=== PATIENT | male | born 1985 | race Two or more races ===

== ENCOUNTER 2020-12-12 09:41 | Inpatient (IN) | payer BC, OTHER ==
[~2020-12-12] VITALS: Ht 172.7 cm; Wt 86.4 kg
[2020-12-12] MEDS ORDERED: MORPHINE SULFATE 4 MG/ML, 1ML ONE ×2 (10:25→13:24)
[2020-12-12] MEDS ORDERED: ONDANSETRON 2MG/ML, 2ML ONE (10:25)
[2020-12-12] MEDS ORDERED: SODIUM CHLORIDE FLUSH 10ML SYR IVF ONE (10:30)
[2020-12-12] MEDS ORDERED: SODIUM CHLORIDE 0.9% 1,000ML IVBOLUS ONE (10:30)
[2020-12-12] MEDS ORDERED: ONDANSETRON 2MG/ML, 2ML IVPush ONE (10:30)
[2020-12-12] MEDS: MORPHINE SULFATE 4 MG/ML, 1ML IVPush PRN ×2 (10:52→13:33)
[2020-12-12 11:17] LABS: BASOPHILS % (AUTO) 1 % (0-1); EOSINOPHILS % (AUTO) 0 % (1-7); LYMPHOCYTES % (AUTO) 13 % (22-44); MEAN CORPUSCULAR HEMOGLOBIN 31.3 pg (27.5-34.5); MEAN CORPUSCULAR HGB CONC 34.8 g/dL (33.2-36.2); MEAN PLATELET VOLUME 7.7 fL (7.4-10.4); MONOCYTES % (AUTO) 9 % (2-9); NEUTROPHILS % (AUTO) 78 % (42-75); PLATELET COUNT 312 x10^3/uL (130-400); RED BLOOD COUNT 5.22 x10^6/uL (4.38-5.82); RED CELL DISTRIBUTION WIDTH 13.3 % (9.4-14.8)
[2020-12-12 11:22] LABS: ALANINE AMINOTRANSFERASE 45 U/L (12-78); ALBUMIN 4.2 g/dL (3.4-5.0); ANION GAP 5 mmol/L (5-15); CALCIUM 9.2 mg/dL (8.5-10.1); CHLORIDE 104 mmol/L (98-107)
[2020-12-12 11:25] LABS: ALKALINE PHOSPHATASE 79 U/L (45-117); BILIRUBIN,TOTAL 2.6 mg/dL (0.2-1.0); CREATININE 0.96 mg/dL (0.7-1.3); TOTAL PROTEIN 8.5 g/dL (6.4-8.2)
[2020-12-12] MEDS ORDERED: OMNIPAQUE 350 MG/ML, 100ML BOTTLE ONE (11:45)
[2020-12-12 11:58] LABS: MD SCAN
--- NOTE | 2020-12-12 12:49 | NUR ---
REPORT FROM MAREN, ASSUME CARE OF PT AT THIS TIME.
--- NOTE | 2020-12-12 13:04 | NUR ---
URINE COLLECTED/SENT TO LAB.
[2020-12-12 13:13] LABS: MICROSCOPIC NOT IND
[2020-12-12] MEDS ORDERED: METRONIDAZOLE PMX 500MG/100ML 100 ML ONE (13:23)
[2020-12-12] MEDS ORDERED: METRONIDAZOLE PMX 500MG/100ML 100 ML IV ONE (13:30)
[2020-12-12] MEDS ORDERED: CEFTRIAXONE 1,000 MG in DEXTROSE 5% 50 ML IVPB ONE (13:30)
--- NOTE | 2020-12-12 13:38 | NUR ---
[facility] IN TO SEE PT. PT MEDICATED FOR 6/10 ABD PAIN AND ANTIBIOTIC INFUSING PER ERP ORDER. PER [facility], OKAY TO PROVIDE ICE CHIPS AND NO HEART MONITORING NEEDED AT THIS TIME. VS UPDATED IN COMPUTER.
[2020-12-12] MEDS ORDERED: HYDROcodone/APAP 5/325 TABLET PO PRN (14:00)
[2020-12-12] MEDS ORDERED: PHARMACY MAY ADJ FOR RENAL FX MC SCH (14:00)
[2020-12-12] MEDS ORDERED: ONDANSETRON ODT 4 MG PO PRN (14:00)
--- NOTE | 2020-12-12 14:09 | NUR ---
REPORT TO DRE RN, PT READY FOR TRANSPORT.
[2020-12-12 14:14] LABS: BASOPHILS % (AUTO) 1 % (0-1); EOSINOPHILS % (AUTO) 0 % (1-7); LYMPHOCYTES % (AUTO) 16 % (22-44); MEAN CORPUSCULAR HEMOGLOBIN 30.2 pg (27.5-34.5); MEAN CORPUSCULAR HGB CONC 33.9 g/dL (33.2-36.2); MEAN PLATELET VOLUME 7.5 fL (7.4-10.4); MONOCYTES % (AUTO) 8 % (2-9); NEUTROPHILS % (AUTO) 75 % (42-75); PLATELET COUNT 290 x10^3/uL (130-400); RED BLOOD COUNT 5.17 x10^6/uL (4.38-5.82); RED CELL DISTRIBUTION WIDTH 13.5 % (9.4-14.8)
[2020-12-12 14:22] LABS: MD NO
[2020-12-12 14:24] LABS: ALANINE AMINOTRANSFERASE 43 U/L (12-78); ALBUMIN 3.7 g/dL (3.4-5.0); CALCIUM 8.3 mg/dL (8.5-10.1); CHLORIDE 107 mmol/L (98-107); CREATININE 0.76 mg/dL (0.7-1.3)
[2020-12-12 14:26] LABS: ALKALINE PHOSPHATASE 79 U/L (45-117); BILIRUBIN,TOTAL 2.2 mg/dL (0.2-1.0); TOTAL PROTEIN 7.8 g/dL (6.4-8.2)
[2020-12-12 14:29] VITALS: BP 138/90
[2020-12-12 14:32] LABS: ANION GAP 7 mmol/L (5-15)
[2020-12-12] MEDS: ENOXAPARIN 40 MG/0.4 ML SQ SCH (14:46)
[2020-12-12] MEDS: SODIUM CHLORIDE 0.9% 1,000 ML IV SCH ×2 (14:47→23:48)
[2020-12-12] MEDS: morphine SULFATE 10 MG/ML, 1ML IV PRN ×2 (17:59→21:12)
[2020-12-12 19:01] VITALS: BP 125/79
[2020-12-12] MEDS: METRONIDAZOLE PMX 500MG/100ML 100 ML IV SCH (20:53)
[2020-12-13 00:29] VITALS: BP 118/76
[2020-12-13] MEDS: morphine SULFATE 10 MG/ML, 1ML IV PRN ×4 (01:27→19:40)
[2020-12-13] MEDS: METRONIDAZOLE PMX 500MG/100ML 100 ML IV SCH ×3 (04:53→20:47)
[2020-12-13 06:55] VITALS: BP 145/91
[2020-12-13 07:05] LABS: BASOPHILS % (AUTO) 0 % (0-1); EOSINOPHILS % (AUTO) 0 % (1-7); LYMPHOCYTES % (AUTO) 13 % (22-44); MEAN CORPUSCULAR HEMOGLOBIN 30.8 pg (27.5-34.5); MEAN CORPUSCULAR HGB CONC 34.1 g/dL (33.2-36.2); MEAN PLATELET VOLUME 7.8 fL (7.4-10.4); MONOCYTES % (AUTO) 8 % (2-9); NEUTROPHILS % (AUTO) 79 % (42-75); PLATELET COUNT 269 x10^3/uL (130-400); RED CELL DISTRIBUTION WIDTH 13.4 % (9.4-14.8)
[2020-12-13 07:08] LABS: ALANINE AMINOTRANSFERASE 69 U/L (12-78); ALBUMIN 3.4 g/dL (3.4-5.0); ANION GAP 7 mmol/L (5-15); CALCIUM 8.4 mg/dL (8.5-10.1); CHLORIDE 106 mmol/L (98-107); CREATININE 0.77 mg/dL (0.7-1.3)
[2020-12-13 07:10] LABS: MD NO
[2020-12-13 07:11] LABS: ALKALINE PHOSPHATASE 78 U/L (45-117); BILIRUBIN,TOTAL 3.1 mg/dL (0.2-1.0); TOTAL PROTEIN 7.4 g/dL (6.4-8.2)
[2020-12-13] MEDS: SODIUM CHLORIDE 0.9% 1,000 ML IV SCH ×3 (07:33→23:49)
[2020-12-13] MEDS: ACETAMINOPHEN 325 MG TABLET PO PRN (07:43)
[2020-12-13] MEDS: ENOXAPARIN 40 MG/0.4 ML SQ SCH (13:11)
[2020-12-13 13:13] VITALS: BP 155/90
[2020-12-13] MEDS: CEFTRIAXONE 2 GM in DEXTROSE 5% 50 ML IVPB SCH (14:15)
[2020-12-13 19:48] VITALS: BP 156/91
[2020-12-14 00:55] VITALS: BP 142/98
[2020-12-14] MEDS: morphine SULFATE 10 MG/ML, 1ML IV PRN ×3 (01:01→14:48)
[2020-12-14] MEDS: ACETAMINOPHEN 325 MG TABLET PO PRN (04:47)
[2020-12-14] MEDS: METRONIDAZOLE PMX 500MG/100ML 100 ML IV SCH ×3 (04:48→20:48)
[2020-12-14 05:43] LABS: BASOPHILS % (AUTO) 1 % (0-1); EOSINOPHILS % (AUTO) 1 % (1-7); LYMPHOCYTES % (AUTO) 22 % (22-44); MEAN CORPUSCULAR HEMOGLOBIN 30.6 pg (27.5-34.5); MEAN CORPUSCULAR HGB CONC 33.9 g/dL (33.2-36.2); MEAN PLATELET VOLUME 7.4 fL (7.4-10.4); MONOCYTES % (AUTO) 9 % (2-9); NEUTROPHILS % (AUTO) 67 % (42-75); PLATELET COUNT 311 x10^3/uL (130-400); RED BLOOD COUNT 4.92 x10^6/uL (4.38-5.82); RED CELL DISTRIBUTION WIDTH 13.2 % (9.4-14.8)
[2020-12-14 05:46] LABS: MD NO
[2020-12-14 05:52] LABS: ALBUMIN 3.5 g/dL (3.4-5.0); ANION GAP 7 mmol/L (5-15); CHLORIDE 104 mmol/L (98-107)
[2020-12-14 05:55] LABS: ALANINE AMINOTRANSFERASE 57 U/L (12-78); ALKALINE PHOSPHATASE 76 U/L (45-117); BILIRUBIN,TOTAL 1.6 mg/dL (0.2-1.0); CALCIUM 9.4 mg/dL (8.5-10.1); CREATININE 0.71 mg/dL (0.7-1.3); TOTAL PROTEIN 7.8 g/dL (6.4-8.2)
[2020-12-14 07:43] VITALS: BP 147/107
[2020-12-14] MEDS: SODIUM CHLORIDE 0.9% 1,000 ML IV SCH (08:49)
[2020-12-14 13:28] LABS: OCCULT BLOOD NEGATIVE (NEGATIVE)
[2020-12-14 13:30] VITALS: BP 153/103
[2020-12-14 13:38] LABS: STOOL FOR LEUKOCYTES NONE SEEN (NEGATIVE)
[2020-12-14] MEDS: ENOXAPARIN 40 MG/0.4 ML SQ SCH (14:00)
[2020-12-14] MEDS: CEFTRIAXONE 2 GM in DEXTROSE 5% 50 ML IVPB SCH (14:48)
[2020-12-14 18:52] VITALS: BP 146/100
[2020-12-14 19:09] VITALS: BP 137/88
[2020-12-15] MEDS: ACETAMINOPHEN 325 MG TABLET PO PRN (00:25)
[2020-12-15 01:17] VITALS: BP 135/89
[2020-12-15 05:09] LABS: BASOPHILS % (AUTO) 1 % (0-1); EOSINOPHILS % (AUTO) 2 % (1-7); LYMPHOCYTES % (AUTO) 21 % (22-44); MEAN CORPUSCULAR HEMOGLOBIN 30.8 pg (27.5-34.5); MEAN CORPUSCULAR HGB CONC 34.5 g/dL (33.2-36.2); MEAN PLATELET VOLUME 7.5 fL (7.4-10.4); MONOCYTES % (AUTO) 10 % (2-9); NEUTROPHILS % (AUTO) 67 % (42-75); PLATELET COUNT 382 x10^3/uL (130-400); RED BLOOD COUNT 5.31 x10^6/uL (4.38-5.82)
[2020-12-15 05:10] LABS: MD NO
[2020-12-15] MEDS: METRONIDAZOLE PMX 500MG/100ML 100 ML IV SCH ×2 (05:11→12:39)
[2020-12-15 05:24] LABS: ANION GAP 5 mmol/L (5-15); CALCIUM 9.5 mg/dL (8.5-10.1); CHLORIDE 105 mmol/L (98-107); CREATININE 0.86 mg/dL (0.7-1.3)
[2020-12-15 07:34] VITALS: BP 143/98
[2020-12-15 12:46] VITALS: BP 148/96
[2020-12-15] MEDS: ENOXAPARIN 40 MG/0.4 ML SQ SCH (14:00)
[2020-12-15] MEDS: CEFTRIAXONE 2 GM in DEXTROSE 5% 50 ML IVPB SCH (14:27)
[2020-12-15] MEDS ORDERED: CEFD300C37 PO (15:03)
[2020-12-15] MEDS ORDERED: ACID1TAB7 PO (15:03)
[2020-12-15] MEDS ORDERED: METR500T PO (15:03)
[2020-12-15] MEDS ORDERED: HYDR-2214 PO (15:03)
[2020-12-15] MEDS ORDERED: LACTOBACILLUS CHEW TABLET PO SCH (16:00)
[2020-12-15] MEDS ORDERED: metroNIDAZOLE 500 MG TABLET PO SCH (20:00)
[2020-12-15] MEDS ORDERED: CEFDINIR 300 MG CAPSULE PO SCH (21:00)
== END 2020-12-15 16:23 | disposition home or self-care (01) | DRG 872 ==
LOC: ED 10:35 → EDIP 13:20 → 3N 14:23 → DCLOUNGE 12-15 16:15
PROVIDERS: ADMIT Hospitalist; ATTEND Internal Medicine
DX: A41.9 Sepsis, unspecified organism (principal); K57.32 Diverticulitis of large intestine without perforation or abscess without bleeding; K76.0 Fatty (change of) liver, not elsewhere classified; Z90.49 Acquired absence of other specified parts of digestive tract
CPT/HCPCS: 36415; 74177; 80048; 80053; 81003; 82272; 83605; 83690; 83735; 85025; 87040; 89055; 93005; 96361; 96374; G0378; J0696; J1650; J2405; Q9967; J2270; J7030